=== PATIENT | female | born 1995 | race Two or more races ===

== ENCOUNTER 2023-12-16 12:36 | Outpatient (CLI) | payer OTHER | END 2023-12-16 12:39 | disposition home or self-care (01) | LOC: PRENATAL 12:36 | PROVIDERS: ATTEND Obstetrics & Gynecology Maternal & Fetal Medicine | DX: O35.9XX0 Maternal care for (suspected) fetal abnormality and damage, unspecified, not applicable or unspecified (principal); O35.3XX0 Maternal care for (suspected) damage to fetus from viral disease in mother, not applicable or unspecified; O44.00 Complete placenta previa NOS or without hemorrhage, unspecified trimester; Z3A.20 20 weeks gestation of pregnancy ==

== ENCOUNTER 2024-03-09 08:47 | Outpatient (CLI) | payer OTHER | END 2024-03-09 08:48 | disposition home or self-care (01) | LOC: PRENATAL 08:47 | PROVIDERS: ATTEND Obstetrics & Gynecology Maternal & Fetal Medicine | DX: O26.849 Uterine size-date discrepancy, unspecified trimester (principal); O36.8199 Decreased fetal movements, unspecified trimester, other fetus; O24.419 Gestational diabetes mellitus in pregnancy, unspecified control; Z3A.32 32 weeks gestation of pregnancy ==

== ENCOUNTER 2024-04-02 10:24 | Outpatient (CLI) | payer OTHER | END 2024-04-02 10:25 | disposition home or self-care (01) | LOC: PRENATAL 10:24 | PROVIDERS: ATTEND Obstetrics & Gynecology Maternal & Fetal Medicine | DX: O26.849 Uterine size-date discrepancy, unspecified trimester (principal); O36.8199 Decreased fetal movements, unspecified trimester, other fetus; O24.419 Gestational diabetes mellitus in pregnancy, unspecified control; O99.019 Anemia complicating pregnancy, unspecified trimester; Z3A.36 36 weeks gestation of pregnancy ==

== ENCOUNTER 2024-04-21 10:03 | Inpatient (IN) | payer OTHER ==
[~2024-04-21] VITALS: Ht 152.4 cm; Wt 94.3 kg
[2024-04-21] VITALS (10 sets, daily range): BP systolic 119–148; BP diastolic 65–87; O2SAT 99
[2024-04-21] MEDS ORDERED: PRENATABS RX T1 EACH PO (10:10)
[2024-04-21] MEDS ORDERED: RINGERS SOLUTION,LACTATED 1,000 ML IV SCH (10:15)
[2024-04-21 10:53] LABS: HEMATOCRIT 35.8 % (36.0-45.00); HEMOGLOBIN 12.1 g/dL (12.0-15.00); MEAN CELL VOLUME 89.8 fL (80.00-100.00); MEAN CORPUSCULAR HEMOGLOBIN 30.4 pg (27.00-32.0); MEAN CORPUSCULAR HGB CONC 33.9 g/dl (32.0-36.0); PLATELET COUNT 269 K/uL (150-450); RED BLOOD COUNT 3.99 M/uL (4.00-6.00); RED CELL DISTRIBUTION WIDTH 15.7 % (11.5-14.5)
[2024-04-21 11:46] LABS: ALBUMIN 2.9 gm/dL (3.4-5.0); BILIRUBIN TOTAL 0.3 mg/dL (0.3-1.2); CALCIUM 9.2 mg/dL (8.5-10.1); CREATININE SERUM 0.66 mg/dL (0.55-1.02); GFR 106.64; GLOBULINA 3.6 G/DL (2.4-3.5); POTASSIUM 4.23 mEq/L (3.5-5.1); TOTAL PROTEIN 6.5 gm/dL (6.4-8.2)
[2024-04-21 11:54] LABS: INR < 0.93
[2024-04-21] MEDS ORDERED: OXYTOCIN 1,000 ML IV SCH (12:00)
[2024-04-21] MEDS ORDERED: IBUprofen 400 MG TABLET PO PRN (12:00)
[2024-04-21] MEDS ORDERED: CHLORHEXIDINE GLUCONATE 120 ML BOTTLE TP SCH (12:00)
[2024-04-21] MEDS ORDERED: ACETAMINOPHEN 500 MG GEL..CAP PO PRN (12:15)
[2024-04-21] MEDS ORDERED: LIDOCAINE HCL 1% 10ML VIAL PERCUT ONE (13:00)
[2024-04-21] MEDS ORDERED: ERYTHROMYCIN BASE OPHT 1GM EACH TUBE OP ONE (13:00)
[2024-04-21] MEDS ORDERED: BENZOCAINE/MENTHOL 90 ML BOTTLE TOP SCH (14:00)
[2024-04-22 00:44] VITALS: BP 113/70
[2024-04-22 08:20] VITALS: BP 140/88
[2024-04-22 16:46] VITALS: BP 140/83
[2024-04-22 21:16] VITALS: BP 113/77
[2024-04-23] VITALS: BP 99/63
[2024-04-23] MEDS ORDERED: NAPR500T14 PO (08:26)
[2024-04-23 08:38] VITALS: BP 138/70
== END 2024-04-23 13:56 | disposition home or self-care (01) | DRG 807 ==
LOC: LDR 10:03 → OB/GYN 14:29
PROVIDERS: ADMIT Obstetrics & Gynecology; ATTEND Obstetrics & Gynecology
PROC: 10E0XZZ Delivery of Products of Conception, External Approach (ICD-10-PCS; principal; 2024-04-21)
PROC: 0KQM0ZZ Repair Perineum Muscle, Open Approach (ICD-10-PCS; 2024-04-21)
PROC: 4A1HXCZ Monitoring of Products of Conception, Cardiac Rate, External Approach (ICD-10-PCS; 2024-04-21)
DX: O70.1 Second degree perineal laceration during delivery (principal); Z37.0 Single live birth; Z3A.38 38 weeks gestation of pregnancy; Z20.822 Contact with and (suspected) exposure to COVID-19